=== PATIENT | female | born 1990 | race Two or more races ===

== ENCOUNTER 2020-03-07 16:06 | Emergency (ER) | payer SELFPAY ==
[~2020-03-07] VITALS: Ht 165.1 cm; Wt 55.8 kg
--- NOTE | 2020-03-07 16:10 | NUR ---
[id number], CAME TO ER C/O SORETHROAT, N/V AND ON/OFF FEVER X 1 WEEK. GOT TESTED FOR COVID 19 WITH NEGATIVE RESULT LAST 03/01/20. RR IS EVEN AND UNLABORED WITH NAD NOTED. SKIN IS WARM AND DRY. AWAITING MD FOR EVAL.
[2020-03-07] MEDS ORDERED: ONDANSETRON 4 MG TAB.RAPDIS SL ONE (17:30)
--- NOTE | 2020-03-07 17:55 | NUR ---
PROVIDED WARM BLANKET FOR COMFORT.
[2020-03-07] MEDS ORDERED: ONDANSETRON 4 MG TAB.RAPDIS ONE (18:04)
[2020-03-07 18:08] LABS: APPEARANCE,URINE Clear (CLEAR); BILIRUBIN,URINE Negative (NEGATIVE); BLOOD, URINE Trace-intact Ery/uL (NEGATIVE); COLOR,URINE Yellow (YELLOW); KETONES,URINE Negative (NEGATIVE); LEUKOCYTE ESTERASE ,URINE Negative (NEGATIVE); NITRITE, URINE Negative (NEGATIVE); PH,URINE 5.5 (5.0-8.0); PROTEIN,URINE Negative (NEGATIVE); UGLUCOSE Negative (NEGATIVE); UROBILINOGEN,URINE 0.2 EU/dL (0.2)
[2020-03-07 18:39] LABS: BACTERIA,URINE Few /HPF (None Seen); RBC,URINE 2-3/HPF /HPF (0-2)
[2020-03-07 18:40] LABS: MUCUS,URINE Few /LPF (None Seen); SQUAMOUS EPITHELIAL CELL,UR Few /HPF (None Seen); URINE AMORPHOUS URATE Few /HPF (None Seen)
[2020-03-07 19:08] VITALS: BP 121/66
--- NOTE | 2020-03-07 19:08 | NUR ---
Patient discharged to home in stable condition. Written and verbal after care instructions given. Patient verbalizes understanding of instruction.
== END 2020-03-07 19:09 | disposition home or self-care (01) ==
LOC: ER 16:10
DX: R11.2 Nausea with vomiting, unspecified (principal); R52 Pain, unspecified; Z20.828 Contact with and (suspected) exposure to other viral communicable diseases
CPT/HCPCS: 71045; 81001; 84703; 99284; C9803; Q0162; U0003; 81000-TC